=== PATIENT | male | born 1955 | race Caucasian/White ===

== ENCOUNTER 2020-02-03 09:14 | Emergency (ER) | payer OTHER ==
[~2020-02-03] VITALS: Ht 188 cm; Wt 113.4 kg
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
[2020-02-03 10:15] LABS: BASO # 0.1 x10^3/uL (0.0-0.2); BASO % 1 % (0-3); EOS # 0.2 x10^3/uL (0.0-0.7); EOS % 3 % (0-3); HEMATOCRIT 42.1 % (39.0-53.0); HEMOGLOBIN 14.3 g/dL (13.0-17.5); LYMPH # 1.5 x10^3/uL (1.0-4.8); LYMPH % 22 % (24-48); MEAN CORPUSCULAR HEMOGLOBIN 32 pg (25-35); MEAN CORPUSCULAR HGB CONC 34 g/dL (31-37); MEAN CORPUSCULAR VOLUME 93 fL (79-100); MONO # 0.7 x10^3/uL (0.0-1.1); MONO % 10 % (0-9); NEUT # 4.7 x10^3/uL (1.8-7.7); NEUT % 65 % (31-73); PLATELET COUNT 232 x10^3/uL (140-400); RED BLOOD COUNT 4.53 x10^6/uL (4.30-5.70); RED CELL DISTRIBUTION WIDTH 13.8 % (11.5-14.5); WHITE BLOOD COUNT 7.2 x10^3/uL (4.0-11.0)
[2020-02-03 10:25] LABS: CALCIUM 9.3 mg/dL (8.5-10.1); GFR 75.2; POTASSIUM 4.7 mmol/L (3.5-5.1)
[2020-02-03] MEDS ORDERED: DIPH,PERTUSS(ACELL),TET VAC/PF 0.5 ML SYRINGE. VAX IM ONE (10:30)
[2020-02-03 10:31] LABS: ALBUMIN 3.9 g/dL (3.4-5.0); ALBUMIN/GLOBULIN RATIO 1.3 (1.0-1.7); TOTAL BILIRUBIN 0.4 mg/dL (0.2-1.0)
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
[2020-02-03] MEDS ORDERED: IOHEXOL 300 MG/ML 100ML VIAL. IV ONE (10:45)
[2020-02-03] MEDS ORDERED: CONTRAST GIVEN. MC PRN (10:45)
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
[2020-02-03] MEDS ORDERED: ACETAMINOPHEN 325 MG TABLET. PO ONE (11:30)
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
--- NOTE | 2020-02-03 12:35 | RAD ---
EXAM: CHEST AP ONLY 02/03/2020 9:50 AM CLINICAL INDICATION: Left shoulder pain COMPARISON: None TECHNIQUE: AP view of the chest FINDINGS: The heart and mediastinum are normal. Lungs are well-expanded and clear. No consolidation, pleural effusion, or pneumothorax. Pulmonary vascularity is normal. No displaced fracture. IMPRESSION: Normal chest radiograph. Electronically signed by: Jocelin Espinoza MD (02/03/2020 12:32 PM) [id number]
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
[2020-02-03] MEDS ORDERED: HYDR-2761 PO (14:26)
[2020-02-03 14:51] VITALS: BP 157/73
== END 2020-02-03 15:10 | disposition home or self-care (01) ==
LOC: ER 09:14
DX: S80.212A Abrasion, left knee, initial encounter (principal); M25.512 Pain in left shoulder; M54.5 Low back pain; M54.2 Cervicalgia; R10.9 Unspecified abdominal pain; I10 Essential (primary) hypertension; Z98.890 Other specified postprocedural states; V98.8XXA Other specified transport accidents, initial encounter; Y93.89 Activity, other specified; Y92.413 State road as the place of occurrence of the external cause; Y99.8 Other external cause status
CPT/HCPCS: 36415; 70450; 71045; 72100; 72125; 73030; 73060; 73200; 73562; 73590; 74177; 80053; 85025; 90471; 90715; 99285; A4565; Q9967